=== PATIENT | female | born 1985 | race Asian ===

== ENCOUNTER 2020-08-22 03:53 | Inpatient (IN) | payer OTHER ==
[2020-08-22] VITALS (8 sets, daily range): BP systolic 93–120; BP diastolic 45–62
[~2020-08-22] VITALS: Ht 144.8 cm; Wt 56.7 kg
[2020-08-22] MEDS ORDERED: ACETAMINOPHEN ES 500 MG TABLET ONE (04:06)
--- NOTE | 2020-08-22 04:13 | NUR ---
Patient came to er bed 16 c/o abdominal pain since 1x hour ago with some spotting. This is patient's first . Patient is alert and oriented X4. Patient is breathing evenly and unlabored on room air. Connected to the monitor.
[2020-08-22 04:21] LABS: BASOPHILS # (AUTO) 0.1 /CMM (0.0-0.2); BASOPHILS % (AUTO) 1.2 % (0.0-2.0); EOSINOPHILS % (AUTO) 2.2 % (0.0-6.0); HEMATOCRIT 38 % (33-45); HEMOGLOBIN 13.4 g/dL (11.5-14.8); LYMPHOCYTES # (AUTO) 2.8 /CMM (0.8-4.8); LYMPHOCYTES % (AUTO) 32.8 % (20.0-44.0); MEAN CORPUSCULAR HGB CONC 35 g/dl (31.0-36.0); MEAN CORPUSCULAR VOLUME 92 fL (82-100); MONOCYTES # (AUTO) 0.5 /CMM (0.1-1.30); MONOCYTES % (AUTO) 6.3 % (2.0-12.0); NEUTROPHILS # (AUTO) 4.9 /CMM (1.8-8.9); NEUTROPHILS % (AUTO) 57.5 % (43.0-81.0); PLATELET COUNT (AUTO) 352 /CMM (150-450); RED BLOOD CELL COUNT(AUTO) 4.14 MIL/uL (4.0-5.2); WHITE BLOOD COUNT (AUTO) 8.5 K/uL (4.3-11.0)
[2020-08-22 04:30] LABS: CALCIUM, SERUM 8.6 mg/dL (8.5-10.1); CREATININE 0.7 mg/dL (0.6-1.3); POTASSIUM 3.7 mmol/L (3.5-5.1)
[2020-08-22] MEDS ORDERED: ACETAMINOPHEN 325 MG TABLET PO ONE (04:30)
[2020-08-22] MEDS ORDERED: ONDANSETRON HCL/PF 4 MG/2 ML VIAL IVP ONE (04:30)
[2020-08-22] MEDS ORDERED: IV NS 0.9% 1,000 ML BAG IV ONE ×2 (04:30→05:00)
[2020-08-22 04:58] LABS: ALBUMIN 3.5 g/dL (3.4-5.0); BILIRUBIN,DIRECT 0.1 mg/dL (0.0-0.2); BILIRUBIN,TOTAL 0.3 mg/dL (0.2-1.0); TOTAL PROTEIN, SERUM 7.1 g/dL (6.4-8.2)
--- NOTE | 2020-08-22 05:05 | NUR ---
us at bedside
--- NOTE | 2020-08-22 05:08 | NUR ---
CALL FROM LAB: PT NOT A CANDIDATE FOR RHOGAM
--- NOTE | 2020-08-22 05:27 | NUR ---
Finished with US procedure
--- NOTE | 2020-08-22 05:44 | NUR ---
ALEX ANDERSON TALKING TO RADIOLOGIST REGARDING PT.
--- NOTE | 2020-08-22 05:45 | NUR ---
Iveth Justice MD paged per ER order.
--- NOTE | 2020-08-22 05:45 | NUR ---
Patient does not want to have any other medications for pain.
--- NOTE | 2020-08-22 05:47 | NUR ---
ALEX ANDERSON TALKING TO DR. DOE REGARDING PT.
--- NOTE | 2020-08-22 05:56 | NUR ---
PANEL PAGED PER ER MD ORDER.
[2020-08-22] MEDS ORDERED: ONDANSETRON HCL/PF 4 MG/2 ML VIAL IV ONE (06:00)
[2020-08-22] MEDS ORDERED: MORPHINE SULFATE INJ 2 MG/ML DISP.SYRIN IV ONE (06:00)
--- NOTE | 2020-08-22 06:08 | NUR ---
BED ASSIGNMENT 320-2
--- NOTE | 2020-08-22 06:12 | NUR ---
ER TALKING TO JAYCEE BATISTA DNP REGARDING PT ADMISSION.
[2020-08-22] MEDS ORDERED: ONDANSETRON HCL/PF 4 MG/2 ML VIAL ONE (06:35)
[2020-08-22] MEDS ORDERED: MORPHINE SULFATE INJ 4 MG/ML DISP.SYRIN ONE (06:35)
--- NOTE | 2020-08-22 06:46 | NUR ---
REPORT GIVEN TO VAISHNAVI MORILLO FOR MARIELENA.
--- NOTE | 2020-08-22 07:30 | NUR ---
ms rn received a new admission from er, 34 female,awake,alert,oriented x4,came in w/ dx of ectopic , w/ abd pain of 3/10 at this time, patient will have surgery at 9am per records management coordinator.all needs attended.
[2020-08-22] MEDS ORDERED: IV LR 1000 ML 1,000 ML IV PRN (08:00)
[2020-08-22] MEDS ORDERED: Z GUARD REMEDY 2 OZ OINT TP PRN (08:00)
[2020-08-22] MEDS ORDERED: ONDANSETRON HCL/PF 4 MG/2 ML VIAL IVP PRN ×2 (08:00→11:30)
[2020-08-22] MEDS ORDERED: MORPHINE SULFATE INJ 2 MG/ML DISP.SYRIN IV PRN (08:00)
[2020-08-22] MEDS ORDERED: ACETAMINOPHEN 325 MG TABLET PO PRN (08:00)
[2020-08-22 08:37] LABS: HEMATOCRIT 33 % (33-45); HEMOGLOBIN 11.8 g/dL (11.5-14.8); MEAN CORPUSCULAR HGB CONC 35 g/dl (31.0-36.0); MEAN CORPUSCULAR VOLUME 94 fL (82-100); PLATELET COUNT (AUTO) 286 /CMM (150-450); RED BLOOD CELL COUNT(AUTO) 3.57 MIL/uL (4.0-5.2); WHITE BLOOD COUNT (AUTO) 13.1 K/uL (4.3-11.0)
--- NOTE | 2020-08-22 08:40 | NUR ---
ms rn called dr. gonzales for or orders, consent signed.
--- NOTE | 2020-08-22 08:45 | NUR ---
ms rn patient went down to or for laparoscopic, partial salphingectomy,all needs attended.
[2020-08-22] MEDS ORDERED: FENTANYL PF 100MCG/2ML AMPUL ONE (09:00)
[2020-08-22] MEDS ORDERED: HYDROMORPHONE INJ 2 MG/ML DISP.SYRIN IV PRN (11:00)
[2020-08-22] MEDS ORDERED: oxyCODONE/APAP (5/325 MG) 1 UDTAB TABLET PO PRN ×2 (11:00)
[2020-08-22] MEDS ORDERED: HYDROMORPHONE 1 MG/1 ML DISP.SYRIN IV PRN (11:00)
--- NOTE | 2020-08-22 11:20 | NUR ---
ms rn patient came back, s/p lap partial salphimgectomy, awake, alert, will monitor patient.
--- NOTE | 2020-08-22 12:00 | NUR ---
ms rn monitored pot op vitals.
[2020-08-22 15:33] LABS: HEMATOCRIT 34 % (33-45); HEMOGLOBIN 11.8 g/dL (11.5-14.8); MEAN CORPUSCULAR HGB CONC 35 g/dl (31.0-36.0); MEAN CORPUSCULAR VOLUME 92 fL (82-100); PLATELET COUNT (AUTO) 317 /CMM (150-450); RED BLOOD CELL COUNT(AUTO) 3.64 MIL/uL (4.0-5.2); WHITE BLOOD COUNT (AUTO) 9.9 K/uL (4.3-11.0)
--- NOTE | 2020-08-22 16:00 | NUR ---
ms rn remove brown w/ one urine output.
--- NOTE | 2020-08-22 17:00 | NUR ---
ms rn was seen by oriana, possible d/c today if b/p stable, b/p 89/59, will give one liter bolus per order.
[2020-08-22] MEDS ORDERED: IV NS 0.9% 1,000 ML IV ONE (17:30)
--- NOTE | 2020-08-22 18:30 | NUR ---
ms rn b/p-95/59, texted oriana, will be going home tonight but wait for his order.
--- NOTE | 2020-08-22 19:01 | NUR ---
ms rn will endorse to overnight cashier, for digna.
--- NOTE | 2020-08-22 19:28 | NUR ---
MEDICAL DELIVERY DRIVER: CONTINUITY OF CARE Patient in bed, awake, A/O x4. Sinus Rhythm in the Tele monitor, tolerating room air. Abdomen lap site with fritz covered with Mepilex foam, patient denies pain. No c/o N/V. Patient urinated, no BM, no flatus, encouraged ambulation as tolerated. Patient to be discharged today, awaiting orders.
[2020-08-22] MEDS ORDERED: HYDR-3972 PO (19:43)
--- NOTE | 2020-08-22 21:07 | NUR ---
SPECIMEN COLLECTOR: DISCHARGED 21:05 Abdomen lap site, no s/s of infection, no bleeding. Patient is A/O x4, discharge instruction given to patient. New medication/prescription given to patient, indication and possible side effect discussed to patient, verbalized understanding. Personal belongings checked completed and send to patient upon dc. Patient left hosp in stable condition via private car accompanied by Christian/Friend.
== END 2020-08-22 21:05 | disposition home or self-care (01) | DRG 817 ==
LOC: ER 03:58 → TELE 06:17
PROVIDERS: ADMIT Nurse Practitioner Acute Care; ATTEND Hospitalist
PROC: 10T20ZZ Resection of Products of Conception, Ectopic, Open Approach (ICD-10-PCS; principal; 2020-08-22)
PROC: 0UB50ZZ Excision of Right Fallopian Tube, Open Approach (ICD-10-PCS; 2020-08-22)
DX: O00.101 Right tubal pregnancy without intrauterine pregnancy (principal); K66.1 Hemoperitoneum; O99.111 Other diseases of the blood and blood-forming organs and certain disorders involving the immune mechanism complicating pregnancy, first trimester; Z91.018 Allergy to other foods; O99.891 Other specified diseases and conditions complicating pregnancy; Z3A.01 Less than 8 weeks gestation of pregnancy; D72.829 Elevated white blood cell count, unspecified
CPT/HCPCS: 76705-TC; 76805-TC; 80048-TC; 80076-TC; 84702-TC; 85025-TC; 85027-TC; 85730-TC; 87081-TC; 88305-TC; A6402; G0378; J1170; J2270; J2405; J3010; J7030; J7120